=== PATIENT | male | born 1980 | race Hispanic/Latino ===

== ENCOUNTER 2023-07-17 05:11 | Emergency (ER) | payer SELFPAY ==
[2023-07-17] MEDS ORDERED: Dexamethasone 10 MG/ML VIAL ONE (06:31)
[2023-07-17] MEDS ORDERED: diphenhydrAMINE 50 MG/ML VIAL ONE (06:31)
== END 2023-07-17 06:45 | disposition home or self-care (01) ==
LOC: ERS 05:11
DX: L50.9 Urticaria, unspecified (principal)
CPT/HCPCS: 96372; 99283; J1100; J1200